=== PATIENT | male | born 1955 | race Caucasian/White ===

== ENCOUNTER 2017-01-12 15:34 | Emergency (ER) | payer OTHER ==
[~2017-01-12] VITALS: Ht 182.9 cm; Wt 100.9 kg
[~2017-01-12 15:34] MED LIST: ASPI81TA85 PO; BENA25TA4 PO; CLOTR1CR TOP; DICL13PA TD; EFFE150C PO; EFFE75CA75 PO; ENBR50IN2 SC; HYDR25TAB PO; LAMI25TA PO; LIPI10TA PO; MELO15TA4 PO; METF500T13 PO; MOBI15TA PO; MOBI4TAB PO; NEUR300C PO; PRAZ2CAP PO; PRED1TABL PO; SIMV40TA2 PO; TRAM50TA2 PO; TRAZ50TA11 PO; ULTR50TA8 PO; VENL100T PO; VENL75TA2 PO
[2017-01-12 15:35] VITALS: BP 157/95
[2017-01-12] MEDS ORDERED: TRAM50TA2 PO (17:35)
== END 2017-01-12 18:14 | disposition home or self-care (01) ==
LOC: M ED 15:34
DX: Z76.0 Encounter for issue of repeat prescription (principal); M45.9 Ankylosing spondylitis of unspecified sites in spine; M54.5 Low back pain; I10 Essential (primary) hypertension; F43.10 Post-traumatic stress disorder, unspecified; F41.9 Anxiety disorder, unspecified; F33.9 Major depressive disorder, recurrent, unspecified; F17.210 Nicotine dependence, cigarettes, uncomplicated; Z79.84 Long term (current) use of oral hypoglycemic drugs; Z79.899 Other long term (current) drug therapy; Z79.82 Long term (current) use of aspirin

== ENCOUNTER 2017-03-11 13:19 | Emergency (ER) | payer OTHER ==
[~2017-03-11] VITALS: Ht 182.9 cm; Wt 100.9 kg
[2017-03-11 13:30] VITALS: BP 156/90
[2017-03-11] MEDS ORDERED: TRAM50TA2 PO (14:29)
== END 2017-03-11 14:58 | disposition home or self-care (01) ==
LOC: M ED 13:19
DX: Z76.0 Encounter for issue of repeat prescription (principal); E11.9 Type 2 diabetes mellitus without complications; I10 Essential (primary) hypertension; F17.210 Nicotine dependence, cigarettes, uncomplicated; Z79.899 Other long term (current) drug therapy; Z79.82 Long term (current) use of aspirin; Z79.84 Long term (current) use of oral hypoglycemic drugs

== ENCOUNTER 2017-10-08 03:10 | Emergency (ER) | payer OTHER ==
[2017-10-08] MEDS ORDERED: ISOVUE-370 76% 100ML VIAL (Q9967) As Ordered (05:47)
== END 2017-10-08 06:05 | disposition left against medical advice (07) ==
LOC: M ED 03:10
DX: Z53.29 Procedure and treatment not carried out because of patient's decision for other reasons (principal)

== ENCOUNTER → 2018-06-24 | Outpatient (REF) | payer OTHER ==
[~2018-06-24] MED LIST changes: +CLOT1CRE27 TOP; -CLOTR1CR TOP; -EFFE150C PO; +EFFE150C2 PO; +EFFE75CA2 PO; -EFFE75CA75 PO; +HYDR-2541 PO; -HYDR25TAB PO; +LISI-542 PO; +MELO15TA28 PO; -MELO15TA4 PO; +TRAZ-160 PO; -TRAZ50TA11 PO
== END ==
LOC: M SFHCPLAZ 15:45
PROVIDERS: ATTEND Internal Medicine Rheumatology
DX: M45.9 Ankylosing spondylitis of unspecified sites in spine (principal)

== ENCOUNTER → 2018-12-02 | Outpatient (REF) | payer OTHER ==
[~2018-12-02] MED LIST changes: -ENBR50IN2 SC; +ETAN50SY SC; -TRAZ-160 PO; +TRAZ-252 PO
[2018-12-02 14:00] LABS: BASO # 0.1 10^3/uL (0.0-0.2); BASO % 0.9 % (0.0-1.0); EOS # 0.6 10^3/uL (0.0-0.5); EOS % 4.9 % (0.0-3.0); HEMATOCRIT 46.8 % (42.0-52.0); HEMOGLOBIN 15.7 g/dl (13.5-17.5); LYMPH # 3.3 10^3/uL (1.5-5.0); LYMPH % 29.3 % (24.0-44.0); MEAN CORPUSCULAR HEMOGLOBIN 28.7 pg (27.0-33.0); MEAN CORPUSCULAR HGB CONC 33.5 g/dl (32.0-36.5); MEAN CORPUSCULAR VOLUME 85.6 fl (80.0-96.0); MONO # 1.1 10^3/uL (0.0-0.8); MONO % 9.6 % (0.0-5.0); NEUTROPHILS # 6.2 10^3/uL (1.5-8.5); NEUTROPHILS % 54.9 % (36.0-66.0); PLATELET COUNT, AUTOMATED 306 10^3/uL (150-450); RED BLOOD COUNT 5.47 10^6/uL (4.30-6.10); WHITE BLOOD COUNT 11.2 10^3/uL (4.0-10.0)
[2018-12-02 15:04] LABS: ALBUMIN 3.8 GM/DL (3.2-5.2); ALT/SGPT 26 U/L (12-78); BILIRUBIN,TOTAL 0.3 MG/DL (0.2-1.0); BLOOD UREA NITROGEN 14 MG/DL (7-18); CALCIUM LEVEL 9.1 MG/DL (8.8-10.2); CARBON DIOXIDE LEVEL 23 MEQ/L (21-32); CHLORIDE LEVEL 108 MEQ/L (98-107); CHOLESTEROL LEVEL 181 MG/DL (<200); CHOLESTEROL RISK RATIO 4.414 (<5); CREATININE FOR GFR 0.92 MG/DL (0.70-1.30); FREE T4 1.21 NG/DL (0.76-1.46); GLOMERULAR FILTRATION RATE > 60.0 (>49); GLUCOSE, FASTING 120 MG/DL (70-100); HDL CHOLESTEROL 41 MG/DL (>40); LDL CHOLESTEROL 102 MG/DL (<100); NON-HDL-C 140 MG/DL; POTASSIUM SERUM 4.3 MEQ/L (3.5-5.1); SODIUM LEVEL 142 MEQ/L (136-145); TOTAL PROTEIN 7.6 GM/DL (6.4-8.2); TRIGLYCERIDES LEVEL 192 MG/DL (<150)
[2018-12-02 15:10] LABS: HEMOGLOBIN A1c 7.5 %
[2018-12-04 00:06] LABS: Lyme Disease IgG/IgM Antibodie <0.91 ISR (0.00-0.90); Lyme Disease IgM Ab Quantitati <0.80 index (0.00-0.79)
== END ==
LOC: M LAB REF 12:19
PROVIDERS: ATTEND Family Medicine
DX: Z12.5 Encounter for screening for malignant neoplasm of prostate (principal); Z13.228 Encounter for screening for other metabolic disorders

== ENCOUNTER → 2019-01-15 | Outpatient (CLI) | payer OTHER ==
--- NOTE | 2019-01-15 19:29 | REP ---
Clinical: Dorsalis air. Technique: AP, lateral, swimmers views of the thoracic spine. Findings: Smooth thin bridging enthesopathy is appreciated. No acute fracture / compression injury or subluxation. Minimal scattered endplate sclerosis with disc space narrowing. Impression: Mild degenerative changes. Electronically Signed by Benjamin Valle MD 01/15/2019 07:20 P
== END ==
LOC: M WUC 18:22
PROVIDERS: ATTEND Nurse Practitioner Family
DX: M51.34 Other intervertebral disc degeneration, thoracic region (principal); M54.9 Dorsalgia, unspecified

== ENCOUNTER 2019-04-12 11:47 | Emergency (ER) | payer OTHER ==
[~2019-04-12] VITALS: Ht 182.9 cm; Wt 99.8 kg
[~2019-04-12 11:47] MED LIST changes: -SIMV40TA2 PO; +SIMV40TA20 PO
[2019-04-12] MEDS ORDERED: ARIP1TAB4 OR (12:30)
[2019-04-12] MEDS ORDERED: PRAZ2CAP OR (12:30)
[2019-04-12] MEDS ORDERED: TRAM50TA2 PO (13:21)
[2019-04-12 13:24] VITALS: BP 149/92
== END 2019-04-12 13:28 | disposition home or self-care (01) ==
LOC: M ED 11:47
DX: Z76.0 Encounter for issue of repeat prescription (principal); M45.9 Ankylosing spondylitis of unspecified sites in spine; I10 Essential (primary) hypertension; E11.9 Type 2 diabetes mellitus without complications; F33.9 Major depressive disorder, recurrent, unspecified; F41.9 Anxiety disorder, unspecified; F43.10 Post-traumatic stress disorder, unspecified; Z79.899 Other long term (current) drug therapy; F17.210 Nicotine dependence, cigarettes, uncomplicated

== ENCOUNTER 2019-05-21 11:02 | Emergency (ER) | payer OTHER ==
[~2019-05-21] VITALS: Ht 182.9 cm; Wt 97.7 kg
[~2019-05-21 11:02] MED LIST changes: +ARIP1TAB4 OR; +PRAZ2CAP OR
[2019-05-21 11:03] VITALS: BP 148/79
[2019-05-21] MEDS ORDERED: LISI-538 PO (11:11)
[2019-05-21] MEDS ORDERED: ULTR50TA8 PO (11:41)
== END 2019-05-21 11:49 | disposition home or self-care (01) ==
LOC: M ED 11:02
DX: Z76.0 Encounter for issue of repeat prescription (principal); M45.9 Ankylosing spondylitis of unspecified sites in spine; Z79.899 Other long term (current) drug therapy; F17.210 Nicotine dependence, cigarettes, uncomplicated

== ENCOUNTER 2019-06-10 07:49 | Emergency (ER) | payer OTHER ==
[~2019-06-10] VITALS: Ht 182.9 cm; Wt 97.7 kg
[~2019-06-10 07:49] MED LIST changes: +LISI-538 PO
[2019-06-10] MEDS ORDERED: TRAM50TA2 PO (08:26)
[2019-06-10 08:34] VITALS: BP 167/89
== END 2019-06-10 08:37 | disposition home or self-care (01) ==
LOC: M ED 07:49
DX: Z76.0 Encounter for issue of repeat prescription (principal); I10 Essential (primary) hypertension; E78.5 Hyperlipidemia, unspecified; Z79.899 Other long term (current) drug therapy; F17.210 Nicotine dependence, cigarettes, uncomplicated

== ENCOUNTER → 2019-07-09 | Outpatient (REF) | payer OTHER ==
[2019-07-09 16:49] LABS: ALBUMIN 3.8 GM/DL (3.2-5.2); ALT/SGPT 26 U/L (12-78); BILIRUBIN,TOTAL 0.2 MG/DL (0.2-1.0); BLOOD UREA NITROGEN 13 MG/DL (7-18); CALCIUM LEVEL 9.2 MG/DL (8.8-10.2); CARBON DIOXIDE LEVEL 28 MEQ/L (21-32); CHLORIDE LEVEL 106 MEQ/L (98-107); CREATININE FOR GFR 0.95 MG/DL (0.70-1.30); GLOMERULAR FILTRATION RATE > 60.0 (>49); GLUCOSE, FASTING 236 MG/DL (70-100); POTASSIUM SERUM 4.5 MEQ/L (3.5-5.1); SODIUM LEVEL 136 MEQ/L (136-145); TOTAL PROTEIN 7.4 GM/DL (6.4-8.2)
== END ==
LOC: M LAB REF 16:15
PROVIDERS: ATTEND Physician Assistant
DX: M79.2 Neuralgia and neuritis, unspecified (principal); M45.9 Ankylosing spondylitis of unspecified sites in spine; I10 Essential (primary) hypertension; Z79.891 Long term (current) use of opiate analgesic

== ENCOUNTER 2019-07-26 19:04 | Emergency (ER) | payer OTHER ==
[~2019-07-26] VITALS: Ht 182.9 cm; Wt 100.1 kg
[2019-07-26] MEDS ORDERED: FLUO20CA22 (19:13)
[2019-07-26] MEDS ORDERED: MELO15TA28 (19:13)
[2019-07-26] MEDS ORDERED: ARIP1TAB4 (19:13)
[2019-07-26] MEDS ORDERED: TRAM50TA2 PO (19:23)
--- NOTE | 2019-07-26 19:33 | REP ---
Clinical: Acute chest pain . Comparison: 10/07/2013 . Findings: The mediastinum and cardiac silhouette are stable and within normal limits for portable technique. The lung ibrahim are clear without acute consolidation, effusion, or pneumothorax. Skeletal structures are intact. Impression: No acute cardiopulmonary process appreciated. Electronically Signed by Benjamin Valle MD 07/26/2019 07:25 P
[2019-07-26 19:36] LABS: HEMOGLOBIN 13.2 g/dl (13.5-17.5); MEAN CORPUSCULAR HEMOGLOBIN 29.3 pg (27.0-33.0); MEAN CORPUSCULAR HGB CONC 33.8 g/dl (32.0-36.5); MEAN CORPUSCULAR VOLUME 86.5 fl (80.0-96.0); PLATELET COUNT, AUTOMATED 268 10^3/uL (150-450); RED BLOOD COUNT 4.51 10^6/uL (4.30-6.10); WHITE BLOOD COUNT 14.5 10^3/uL (4.0-10.0)
[2019-07-26] MEDS ORDERED: ASPIRIN 81 MG CHEW TABLET PO ONE (19:45)
--- NOTE | 2019-07-26 19:47 | ECGEPIP ---
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
[2019-07-26 19:48] LABS: ATYPICAL LYMPH 2 % (0-5); BASOPHILS 1 % (0-1); EOSINOPHILS 5 % (0-3); LYMPHOCYTES 32 % (16-44); MONOCYTES 7 % (0-5); NEUTROPHILS 53 % (28-66)
[2019-07-26 19:49] LABS: PLATELET ESTIMATE NORMAL (NORMAL)
[2019-07-26] MEDS: NITROGLYCERIN 0.4 MG SUBL TABLET SL PRN ×3 (20:06→20:18)
[2019-07-26 20:10] LABS: BLOOD UREA NITROGEN 13 MG/DL (7-18); CALCIUM LEVEL 8.9 MG/DL (8.8-10.2); CARBON DIOXIDE LEVEL 27 MEQ/L (21-32); CHLORIDE LEVEL 104 MEQ/L (98-107); CK-MB VALUE MASS 20.2 NG/ML (<3.6); CPK CREATINE PHOSPHOKINASE 301 U/L (39-308); CREATININE FOR GFR 0.97 MG/DL (0.70-1.30); GLOMERULAR FILTRATION RATE > 60.0 (>49); GLUCOSE, FASTING 101 MG/DL (70-100); MB/CK RELATIVE INDEX 6.71 (< OR =4); POTASSIUM SERUM 4.5 MEQ/L (3.5-5.1); SODIUM LEVEL 134 MEQ/L (136-145); TROPONIN I 2.14 NG/ML (< 0.10)
[2019-07-26 20:18] VITALS: BP 115/55
[2019-07-26 20:34] LABS: INR 0.99; PROTHROMBIN TIME 12.8 SECONDS (11.8-14.0)
[2019-07-26 20:35] LABS: PARTIAL THROMBOPLASTIN TIME 30.4 SECONDS (25.0-38.4)
[2019-07-26] MEDS ORDERED: ISOVUE-370 76% 100ML VIAL As Ordered ONE (20:38)
--- NOTE | 2019-07-26 21:13 | REPVR ---
PROCEDURE INFORMATION: Exam: CT Angiography Chest With Contrast Exam date and time: 07/26/2019 8:48 PM Age: 64 years old Clinical indication: Chest pain; Additional info: Palpitations, pain rad into jaw TECHNIQUE: Imaging protocol: Computed tomographic angiography of the chest with intravenous contrast. 3D rendering: MIP and/or 3D reconstructed images were created by the technologist. Radiation optimization: All CT scans at this facility use at least one of these dose optimization techniques: automated exposure control; mA and/or kV adjustment per patient size (includes targeted exams where dose is matched to clinical indication); or iterative reconstruction. Contrast material: ISO 370; Contrast volume: 75 ml; Contrast route: IV; COMPARISON: CR PORTABLE CHEST X-RAY 07/26/2019 7:16 PM FINDINGS: Pulmonary arteries: The main pulmonary artery measures 29 mm. No pulmonary embolism is identified. Aorta: The ascending thoracic aorta measures 35 mm. Lungs: Calcified granuloma in the left lower lobe and left upper lobe. Pleural space: Unremarkable. No pneumothorax. No pleural effusion. Heart: Unremarkable. No cardiomegaly. No pericardial effusion. Lymph nodes: Small mediastinal nodes which are upper normal. Gallbladder and bile ducts: Status post cholecystectomy. Adrenals: Left adrenal nodule measuring 12 x 12 x 15 mm with a Hounsfield measurement of -9. There appear to be some smaller left adrenal nodules as well measuring 10 mm with a Hounsfield measurement of -7 and 11 mm nodule with a Hounsfield measurement of -3. Bones/joints: Ankylosis about the thoracolumbar region and segmental ankylosis in the upper thoracic spine. Soft tissues: Unremarkable. IMPRESSION: 1. Old granulomatous disease. 2. There are several left adrenal nodules measuring up to 12 x 12 x 15 mm. No follow-up is necessary. 3. Status post cholecystectomy. 4. Otherwise negative CTA chest. No pulmonary embolism is identified. Electronically signed by: Camron Tom On 07/26/2019 21:13:32 PM
[2019-07-26] MEDS ORDERED: HEPARIN DRIP 25,000 UNITS in IV 1 EA IV SCH (21:15)
[2019-07-26] MEDS ORDERED: HEPARIN SOD (PORCINE) 5000UNITS/ML VIAL (J1644 PER 1000UNITS) IV ONE (21:15)
[2019-07-26 22:49] VITALS: BP 143/79
== END 2019-07-26 22:52 | disposition short-term general hospital (02) ==
LOC: M ED 19:04
DX: I21.4 Non-ST elevation (NSTEMI) myocardial infarction (principal); R55 Syncope and collapse; I10 Essential (primary) hypertension; K21.9 Gastro-esophageal reflux disease without esophagitis; F99 Mental disorder, not otherwise specified; F17.210 Nicotine dependence, cigarettes, uncomplicated; Z88.8 Allergy status to other drugs, medicaments and biological substances; Z79.899 Other long term (current) drug therapy
CPT/HCPCS: 71045; 71275; 80048; 82550; 82553; 83735; 84439; 84443; 85025; 85610; 85730; 93005; 93041; 94760; 96374; 99285; J1644; Q9967

== ENCOUNTER → 2019-11-05 | Outpatient (REF) | payer OTHER, MEDICAID ==
[~2019-11-05] MED LIST changes: +ARIP1TAB4; -ASPI81TA85 PO; +ASPI81TA86 PO; +FLUO20CA22; +MELO15TA28
[2019-12-20 07:07] LABS: ALBUMIN 4.1 GM/DL (3.2-5.2); ALT/SGPT 20 U/L (12-78); BILIRUBIN,TOTAL 0.3 MG/DL (0.2-1.0); BLOOD UREA NITROGEN 13 MG/DL (7-18); CALCIUM LEVEL 9.3 MG/DL (8.8-10.2); CARBON DIOXIDE LEVEL 26 MEQ/L (21-32); CHLORIDE LEVEL 106 MEQ/L (98-107); CHOLESTEROL LEVEL 234 MG/DL (<200); CHOLESTEROL RISK RATIO 6.685 (<5); CREATININE FOR GFR 1.07 MG/DL (0.70-1.30); FREE T4 1.29 NG/DL (0.76-1.46); GLOMERULAR FILTRATION RATE > 60.0 (>49); GLUCOSE, FASTING 94 MG/DL (70-100); HDL CHOLESTEROL 35 MG/DL (>40); LDL CHOLESTEROL 147 MG/DL (<100); NON-HDL-C 199 MG/DL; POTASSIUM SERUM 4.6 MEQ/L (3.5-5.1); SODIUM LEVEL 137 MEQ/L (136-145); TOTAL PROTEIN 7.9 GM/DL (6.4-8.2); TRIGLYCERIDES LEVEL 261 MG/DL (<150)
[2019-12-20 07:08] LABS: HEMOGLOBIN A1c 6.6 %
== END ==
LOC: M LAB REF 17:21
PROVIDERS: ATTEND Physician Assistant
DX: R73.03 Prediabetes (principal); Z79.891 Long term (current) use of opiate analgesic; E66.09 Other obesity due to excess calories

== ENCOUNTER 2020-03-23 21:01 | Emergency (ER) | payer MEDICAID, OTHER ==
[~2020-03-23] VITALS: Ht 182.9 cm; Wt 94.3 kg
[2020-03-23] MEDS ORDERED: PRAZ2CAP PO (21:29)
[2020-03-23] MEDS ORDERED: ASPI-117 PO (21:29)
[2020-03-23] MEDS ORDERED: ATOR40TA75 PO (21:29)
[2020-03-23] MEDS ORDERED: ASPIRIN 81 MG CHEW TABLET PO ONE (21:30)
[2020-03-23 21:54] LABS: BASO # 0.1 10^3/uL (0.0-0.2); BASO % 0.6 % (0.0-1.0); EOS # 0.5 10^3/uL (0.0-0.5); EOS % 2.8 % (0.0-3.0); HEMATOCRIT 46.3 % (42.0-52.0); HEMOGLOBIN 14.9 g/dl (13.5-17.5); LYMPH # 4.2 10^3/uL (1.5-5.0); LYMPH % 24.3 % (24.0-44.0); MEAN CORPUSCULAR HEMOGLOBIN 28.3 pg (27.0-33.0); MEAN CORPUSCULAR HGB CONC 32.2 g/dl (32.0-36.5); MEAN CORPUSCULAR VOLUME 87.9 fl (80.0-96.0); MONO # 1.5 10^3/uL (0.0-0.8); MONO % 8.9 % (0.0-5.0); NEUTROPHILS # 10.9 10^3/uL (1.5-8.5); NEUTROPHILS % 62.9 % (36.0-66.0); PLATELET COUNT, AUTOMATED 287 10^3/uL (150-450); RED BLOOD COUNT 5.27 10^6/uL (4.30-6.10); WHITE BLOOD COUNT 17.3 10^3/uL (4.0-10.0)
--- NOTE | 2020-03-23 21:58 | REPVR ---
PROCEDURE INFORMATION: Exam: XR Chest, 1 View Exam date and time: 03/23/2020 9:50 PM Age: 64 years old Clinical indication: Chest pain; Type not specified TECHNIQUE: Imaging protocol: XR of the chest Views: 1 view. COMPARISON: CR PORTABLE CHEST X-RAY 07/26/2019 7:16 PM FINDINGS: Lungs: Calcified granulomas left lung. Lungs otherwise clear. Pleural space: Unremarkable. No pleural effusion. No pneumothorax. Heart/Mediastinum: Unremarkable. No cardiomegaly. Bones/joints: Unremarkable. IMPRESSION: No acute findings. Electronically signed by: Delvis Pierson On 03/23/2020 21:58:34 PM
[2020-03-23 22:10] LABS: INR 0.94; PROTHROMBIN TIME 12.8 SECONDS (12.5-14.3)
[2020-03-23 22:11] LABS: PARTIAL THROMBOPLASTIN TIME 26.4 SECONDS (24.2-38.5)
[2020-03-23 22:26] LABS: BLOOD UREA NITROGEN 14 MG/DL (7-18); CALCIUM LEVEL 8.9 MG/DL (8.8-10.2); CARBON DIOXIDE LEVEL 27 MEQ/L (21-32); CHLORIDE LEVEL 105 MEQ/L (98-107); CREATININE FOR GFR 1.15 MG/DL (0.70-1.30); GLOMERULAR FILTRATION RATE > 60.0 (>49); GLUCOSE, FASTING 87 MG/DL (70-100); NT-PRO BNP 17 PG/ML (<125); SODIUM LEVEL 139 MEQ/L (136-145)
[2020-03-23] MEDS: GASTROGRAFIN SOLUTION 30ML PO SCH ×2 (22:30→23:00)
[2020-03-23] MEDS ORDERED: ISOVUE-370 76% 100ML VIAL As Ordered ONE (23:13)
--- NOTE | 2020-03-24 00:26 | REPVR ---
PROCEDURE INFORMATION: Exam: CT Angiography Chest With Contrast Exam date and time: 03/23/2020 10:47 PM Age: 64 years old Clinical indication: Chest pain and back pain. R/O dissection. TECHNIQUE: Imaging protocol: Computed tomographic angiography of the chest with intravenous contrast. 3D rendering (Not supervised by radiologist): MIP and/or 3D reconstructed images were created by the technologist. Radiation optimization: All CT scans at this facility use at least one of these dose optimization techniques: automated exposure control; mA and/or kV adjustment per patient size (includes targeted exams where dose is matched to clinical indication); or iterative reconstruction. Contrast material: ISO; Contrast volume: 100 ml; Contrast route: INTRAVENOUS (IV); COMPARISON: CT ANGIO CHEST 07/26/2019 8:40 PM FINDINGS: Pulmonary arteries: No pulmonary embolism. Aorta: The thoracic aorta is intact and patent. There is no thoracic aortic aneurysm, pseudoaneurysm, penetrating atherosclerotic ulcer, intramural hematoma, or dissection. There are mild atherosclerotic calcifications. Great vessels off aortic arch: The brachiocephalic artery, imaged proximal portions of the common carotid arteries, imaged proximal portions of the vertebral arteries, and subclavian arteries are intact. No stenosis or occlusion of these vessels is noted. Thyroid: Unremarkable. Tracheobronchial tree: There are mild secretions in the trachea and right mainstem bronchus. Lungs: There is a 5 mm calcified granuloma in the left upper lobe and a 5 mm calcified granuloma in the left lower lobe that are unchanged compared to the prior CTA chest on 07/26/2019. There are mild centrilobular emphysematous changes, predominantly in the upper lobes, without significant change compared to the prior CTA chest on 07/26/2019. No lung consolidation or ground-glass opacification is noted. Pleural space: Normal. No pneumothorax or pleural effusion. Heart: No cardiomegaly or pericardial effusion. There are coronary artery calcifications. Mediastinal space: No mediastinal mass, fluid collection, or pneumomediastinum. Lymph nodes: There are 9 mm right hilar, 9 mm left hilar, 11 mm precarinal, and 12 mm aortopulmonary window lymph nodes, which are stable compared to the prior CTA chest on 07/26/2019. Diaphragm: Intact. Bones/joints: There is a healing or healed nondisplaced fracture of the right anterior 7th rib, which is new compared to the prior CTA chest on 07/26/2019. There are old healed fracture deformities of the right anterior 3rd and 4th ribs and right scapula. There are chronic mild superior endplate compression fractures of T4, T6, T7, T8, T9, T10, and T11, which are stable compared to the prior CTA chest on 07/26/2019. There are thin bridging vertical syndesmophytes, ankylosis of the facet joints, and ossification of the supraspinous ligament at several levels in the thoracic spine. The bones have a demineralized appearance. No suspicious osteolytic or osteoblastic lesion is noted. Soft tissues: Unremarkable. No soft tissue fluid collection. Other findings: For details regarding the abdominal and pelvic findings, refer to the CTA abdomen and pelvis report on 03/23/2020. IMPRESSION: 1. No thoracic aortic aneurysm, pseudoaneurysm, intramural hematoma, penetrating atherosclerotic ulcer, or dissection. 2. No pulmonary embolism. 3. Healing or healed nondisplaced fracture of the right anterior 7th rib, which is new compared to the prior CTA chest on 07/26/2019. 4. Chronic mild superior endplate compression fractures of T4, T6, T7, T8, T9, T10, and T11, which are stable compared to the prior CTA chest on 07/26/2019. 5. Thin bridging vertical syndesmophytes, ankylosis of the facet joints, and ossification of the supraspinous ligament at several levels in the thoracic spine, which may indicate ankylosing spondylitis. 6. Mild centrilobular emphysematous changes, predominantly in the upper lobes, without significant change compared to the prior CTA chest on 07/26/2019. 7. Precarinal and aortopulmonary window lymphadenopathy, which is stable compared to the prior CTA chest on 07/26/2019. Electronically signed by: Bill Renee On 03/24/2020 00:26:18 AM
--- NOTE | 2020-03-24 00:41 | REPVR ---
PROCEDURE INFORMATION: Exam: CT Abdomen And Pelvis Without Contrast Exam date and time: 03/23/2020 10:47 PM Age: 64 years old Clinical indication: Chest pain and back pain. R/O dissection. TECHNIQUE: Imaging protocol: Computed tomography of the abdomen and pelvis without contrast. Radiation optimization: All CT scans at this facility use at least one of these dose optimization techniques: automated exposure control; mA and/or kV adjustment per patient size (includes targeted exams where dose is matched to clinical indication); or iterative reconstruction. COMPARISON: 1. CT ANGIO CHEST 07/26/2019 8:40:[address] ANGIO ABD/PEL 03/23/2020 11:17:25 PM FINDINGS: Lungs: For details regarding the lungs, refer to the CT chest report on 03/23/2020. Heart: For details regarding the heart, refer to the CT chest report on 03/23/2020. Liver: There is a calcified granuloma in the liver. No liver mass is identified. The contour of the liver is smooth. No hepatomegaly. Gallbladder and bile ducts: There has been a cholecystectomy. There is no fluid collection in the gallbladder fossa. No dilation of the bile ducts is noted. No calcified stones are seen in the common bile duct. Pancreas: Unremarkable. No dilation of the main pancreatic duct is noted. There is no inflammatory fat stranding around the pancreas to suggest acute pancreatitis. Spleen: There is a calcified granuloma in the spleen. No splenomegaly. Adrenal glands: There are left adrenal nodules measuring up to 15 mm, all measuring less than 0 Hounsfield units, which are stable compared to the prior CTA chest on 07/26/2019 and represent benign adrenal adenomas, for which further evaluation and follow-up is not necessary. The right adrenal gland is normal. Kidneys and ureters: There is a 10 mm hyperdense cyst and other benign-appearing cysts in both kidneys measuring up to 18 mm, for which further evaluation and follow-up is not necessary. No stones are noted in the kidneys or ureters. There is no hydronephrosis or hydroureter. Stomach and bowel: The stomach and small bowel are unremarkable. There is severe sigmoid diverticulosis without evidence for diverticulitis. There is no evidence for a bowel obstruction, colitis, pneumatosis intestinalis, intussusception, volvulus, or perforated viscus. Appendix: Normal. There is no evidence for appendicitis. Intraperitoneal space: No free air. No ascites. No asbcess. Retroperitoneal space: No fluid collection. No mass. Vasculature: The abdominal aorta is normal in caliber. There are mild to moderate atherosclerotic calcifications. Lymph nodes: No enlarged lymph nodes. Urinary bladder: The partially distended urinary bladder is unremarkable. No stones or masses are seen in the bladder. Reproductive: There are calcifications in the prostate gland. The seminal vesicles are unremarkable. Bones/joints: There is a healed or healing fracture of the right anterior 7th rib. There is a chronic mild superior endplate compression fracture of L5 and a chronic left L5 pars defect. The right L5 pars interarticularis is intact. There is a grade 1 anterolisthesis of L5 on S1. There are thin bridging vertical syndesmophytes in the thoracic spine and upper lumbar spine with ankylosis of the facet joints and ossification of the supraspinous ligament in the thoracic spine. There is ankylosis of the sacroiliac joints. Degenerative changes are present in the lumbar spine. The bones have a demineralized appearance. There is mild osteoarthritis of both hip joints. There are mild degenerative changes of the pubic symphysis. Soft tissues: There is a small fat containing umbilical hernia. IMPRESSION: 1. No acute findings in the abdomen or pelvis. 2. Severe sigmoid diverticulosis without evidence for diverticulitis. 3. Thin bridging vertical syndesmophytes in the thoracic spine and upper lumbar spine with ankylosis of the facet joints and ossification of the supraspinous ligament in the thoracic spine and ankylosis of the sacroiliac joints, which are findings that may indicate ankylosing spondylitis. 4. Small fat containing umbilical hernia. COMMENTS: 1. Consistent with the [employer]'s Incidental Findings Committee white paper (J Am Katey Radiol 2017): Any incidental adrenal lesion less than or equal to 1 cm is likely benign. No follow-up imaging is recommended for these lesions per consensus recommendations based on imaging criteria. Further lab evaluation could be pursued if warranted based on clinical findings. 2. Consistent with the [employer]'s Incidental Findings Committee white paper (J Am Katey Radiol 2018): Any incidental renal lesion less than 1 cm or classified as too small to characterize, or any incidental cystic renal lesion characterized as simple-appearing, is likely benign. No follow-up imaging is recommended for these lesions per consensus recommendations based on imaging criteria. Electronically signed by: Bill Renee On 03/24/2020 00:41:17 AM
--- NOTE | 2020-03-24 00:41 | REPVR ---
PROCEDURE INFORMATION: Exam: CT Chest Without Contrast; Diagnostic Exam date and time: 03/23/2020 10:47 PM Age: 64 years old Clinical indication: Chest pain and back pain. R/O dissection. TECHNIQUE: Imaging protocol: Diagnostic computed tomography of the chest without contrast. Radiation optimization: All CT scans at this facility use at least one of these dose optimization techniques: automated exposure control; mA and/or kV adjustment per patient size (includes targeted exams where dose is matched to clinical indication); or iterative reconstruction. COMPARISON: 1. CT ANGIO CHEST 07/26/2019 8:[address] ANGIO CHEST 03/23/2020 11:17:[address] ANGIO ABD/PEL 03/23/2020 11:17:25 PM FINDINGS: Tracheobronchial tree: There are mild secretions in the trachea and right mainstem bronchus. Lungs: There is a 5 mm calcified granuloma in the left upper lobe and a 5 mm calcified granuloma in the left lower lobe that are unchanged compared to the prior CTA chest on 07/26/2019. There are mild centrilobular emphysematous changes, predominantly in the upper lobes, without significant change compared to the prior CTA chest on 07/26/2019. No lung consolidation or ground-glass opacification is noted. Pleural space: Normal. No pneumothorax or pleural effusion. Heart: No cardiomegaly or pericardial effusion. There are coronary artery calcifications. Mediastinal space: No mediastinal mass, fluid collection, or pneumomediastinum. Aorta: No thoracic aortic aneurysm or intramural hematoma is noted. There are mild atherosclerotic calcifications. Lymph nodes: There are 9 mm right hilar, 9 mm left hilar, 11 mm precarinal, and 12 mm aortopulmonary window lymph nodes, which are stable compared to the prior CTA chest on 07/26/2019. Diaphragm: Intact. Liver: There is a calcified granuloma in the liver. No liver mass is identified. The contour of the liver is smooth. No hepatomegaly. Gallbladder and bile ducts: There has been a cholecystectomy. There is no fluid collection in the gallbladder fossa. No dilation of the bile ducts is noted. No calcified stones are seen in the common bile duct. Spleen: There is a calcified granuloma in the spleen. No splenomegaly. Adrenals: There are left adrenal nodules measuring up to 15 mm, all measuring less than 0 Hounsfield units, which are stable compared to the prior CTA chest on 07/26/2019 and represent benign adrenal adenomas, for which further evaluation and follow-up is not necessary. The right adrenal gland is normal. Kidneys and ureters: There is a 10 mm hyperdense cyst and other benign-appearing cysts in both kidneys measuring up to 18 mm, for which further evaluation and follow-up is not necessary. The kidneys were not fully imaged. Bones/joints: There is a healing or healed nondisplaced fracture of the right anterior 7th rib, which is new compared to the prior CTA chest on 07/26/2019. There are old healed fracture deformities of the right anterior 3rd and 4th ribs and right scapula. There are chronic mild superior endplate compression fractures of T4, T6, T7, T8, T9, T10, and T11, which are stable compared to the prior CTA chest on 07/26/2019. There are thin bridging vertical syndesmophytes, ankylosis of the facet joints, and ossification of the supraspinous ligament at several levels in the thoracic spine. The bones have a demineralized appearance. No suspicious osteolytic or osteoblastic lesion is noted. Soft tissues: Unremarkable. No soft tissue fluid collection. IMPRESSION: 1. Healing or healed nondisplaced fracture of the right anterior 7th rib, which is new compared to the prior CTA chest on 07/26/2019. 2. Chronic mild superior endplate compression fractures of T4, T6, T7, T8, T9, T10, and T11, which are stable compared to the prior CTA chest on 07/26/2019. 3. Thin bridging vertical syndesmophytes, ankylosis of the facet joints, and ossification of the supraspinous ligament at several levels in the thoracic spine, which may indicate ankylosing spondylitis. 4. Mild centrilobular emphysematous changes, predominantly in the upper lobes, without significant change compared to the prior CTA chest on 07/26/2019. 5. Precarinal and aortopulmonary window lymphadenopathy, which is stable compared to the prior CTA chest on 07/26/2019. COMMENTS: 1. Consistent with the [employer]'s Incidental Findings Committee white paper (J Am Katey Radiol 2017): Any incidental adrenal lesion less than or equal to 1 cm is likely benign. No follow-up imaging is recommended for these lesions per consensus recommendations based on imaging criteria. Further lab evaluation could be pursued if warranted based on clinical findings. 2. Consistent with the [employer]'s Incidental Findings Committee white paper (J Am Katey Radiol 2018): Any incidental renal lesion less than 1 cm or classified as too small to characterize, or any incidental cystic renal lesion characterized as simple-appearing, is likely benign. No follow-up imaging is recommended for these lesions per consensus recommendations based on imaging criteria. Electronically signed by: Bill Renee On 03/24/2020 00:41:39 AM
--- NOTE | 2020-03-24 00:42 | REPVR ---
PROCEDURE INFORMATION: Exam: CT Angiography Abdomen and Pelvis With Contrast Exam date and time: 03/23/2020 10:47 PM Age: 64 years old Clinical indication: Chest pain and back pain. R/O dissection. TECHNIQUE: Imaging protocol: Computed tomographic angiography of the abdomen and pelvis with intravenous contrast material. 3D rendering (Not supervised by radiologist): MIP and/or 3D reconstructed images were created by the technologist. Radiation optimization: All CT scans at this facility use at least one of these dose optimization techniques: automated exposure control; mA and/or kV adjustment per patient size (includes targeted exams where dose is matched to clinical indication); or iterative reconstruction. Contrast material: ISO; Contrast volume: 100 ml; Contrast route: INTRAVENOUS (IV); COMPARISON: CT ANGIO CHEST 07/26/2019 8:40:29 PM FINDINGS: Lungs: For details regarding the lungs, refer to the CTA chest report on 03/23/2020. Heart: For details regarding the heart, refer to the CTA chest report on 03/23/2020. Aorta: The abdominal aorta is normal in caliber. There are mild to moderate atherosclerotic calcifications. Celiac trunk and mesenteric arteries: No occlusion or significant stenosis. Renal arteries: No occlusion or significant stenosis. There are 2 main right renal arteries and a single main left renal artery. Right iliac arteries: No occlusion or significant stenosis. There are mild atherosclerotic calcifications. Right femoral/popliteal arteries: No occlusion or significant stenosis of the right common femoral artery or imaged proximal portion of the right superficial femoral artery. The right popliteal artery was not imaged. Left iliac arteries: No occlusion or significant stenosis. There are mild atherosclerotic calcifications. Left femoral/popliteal arteries: No occlusion or significant stenosis of the left common femoral artery or imaged proximal portion of the left superficial femoral artery. The left popliteal artery was not imaged. Liver: There is a calcified granuloma in the liver. No liver mass is identified. The contour of the liver is smooth. No hepatomegaly. Gallbladder and bile ducts: There has been a cholecystectomy. There is no fluid collection in the gallbladder fossa. No dilation of the bile ducts is noted. No calcified stones are seen in the common bile duct. Pancreas: Normal. No dilation of the main pancreatic duct is noted. There is no inflammatory fat stranding around the pancreas to suggest acute pancreatitis. Spleen: There is a calcified granuloma in the spleen. No splenomegaly. Adrenals: There are left adrenal nodules measuring up to 15 mm, which are stable compared to the prior CTA chest on 07/26/2019 and represent benign adrenal adenomas, for which further evaluation and follow-up is not necessary. The right adrenal gland is normal. Kidneys and ureters: There is a 10 mm hyperdense cyst and other benign-appearing cysts in both kidneys measuring up to 18 mm, for which further evaluation and follow-up is not necessary. There are no wedge-shaped areas of low attenuation in the kidneys to suggest pyelonephritis. There is no renal abscess or perinephric fluid collection. No stones are noted in the kidneys or ureters. There is no hydronephrosis or hydroureter. Stomach and bowel: The stomach and small bowel are unremarkable. There is severe sigmoid diverticulosis without evidence for diverticulitis. There is no evidence for a bowel obstruction, colitis, pneumatosis intestinalis, intussusception, volvulus, or perforated viscus. Appendix: Normal. There is no evidence for appendicitis. Intraperitoneal space: No fluid collection. No free air. Retroperitoneal space: No fluid collection. No mass. Lymph nodes: No enlarged lymph nodes. Urinary bladder: The partially distended urinary bladder is unremarkable. No stones or masses are seen in the bladder. Reproductive: There are calcifications in the prostate gland. The seminal vesicles are unremarkable. Bones/joints: There is a healed or healing fracture of the right anterior 7th rib. There is a chronic mild superior endplate compression fracture of L5 and a chronic left L5 pars defect. The right L5 pars interarticularis is intact. There is a grade 1 anterolisthesis of L5 on S1. There are thin bridging vertical syndesmophytes in the thoracic spine and upper lumbar spine with ankylosis of the facet joints and ossification of the supraspinous ligament in the thoracic spine. There is ankylosis of the sacroiliac joints. Degenerative changes are present in the lumbar spine. The bones have a demineralized appearance. There is mild osteoarthritis of both hip joints. There are mild degenerative changes of the pubic symphysis. Soft tissues: There is a small fat containing umbilical hernia. IMPRESSION: 1. No acute findings in the abdomen or pelvis. 2. No abdominal aortic intramural hematoma, aneurysm, penetrating atherosclerotic ulcer, or dissection. 3. Severe sigmoid diverticulosis without evidence for diverticulitis. 4. Thin bridging vertical syndesmophytes in the thoracic spine and upper lumbar spine with ankylosis of the facet joints and ossification of the supraspinous ligament in the thoracic spine and ankylosis of the sacroiliac joints, which are findings that may indicate ankylosing spondylitis. 5. Small fat containing umbilical hernia. Electronically signed by: Bill Renee On 03/24/2020 00:42:08 AM
--- NOTE | 2020-03-24 02:23 | ED PDOC ---
Post-Departure Follow-Up 64yo M smoker with a history of CAD s/p stent (x1), HTN, preDM, HLD and ankylosi ng spondylitis presents with chest pain. He reports that he developed severe, sharp, spasm like back pain. He then developed L parasternal chest pain and weakness in both his arms. The episode lasted approximately 2 hours. He took NTG (x1) with improvement, however his BP dropped to 88/53 to 93/54. His associated symptoms include dizziness. He denies fever, chills, increased sweating, nausea, vomiting, diarrhea, decreased PO, SOB, cough, palpitation, leg pain/swelling, abdominal pain, numbness, tingling, leg weakness, recent travel/hospitalization or other symptoms. His exam is unremarkable. He is neurovascularly intact with central pulses, afebrile, hemodynamically stable and nontoxic appearing. His symptoms are concerning for aortic dissection vs ACS vs MSK pain. Labs, imaging and EKG were obtained. He was given GLORIA JONES MD Mar 24, 2020 02:23
[2020-03-24 03:02] VITALS: BP 136/77
--- NOTE | 2020-03-24 07:41 | ECGEPIP ---
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
== END 2020-03-24 03:06 | disposition home or self-care (01) ==
LOC: M ED 21:01
DX: M79.18 Myalgia, other site (principal); I10 Essential (primary) hypertension; R73.03 Prediabetes; E78.5 Hyperlipidemia, unspecified; I25.10 Atherosclerotic heart disease of native coronary artery without angina pectoris; M45.9 Ankylosing spondylitis of unspecified sites in spine; Z95.5 Presence of coronary angioplasty implant and graft; Z79.899 Other long term (current) drug therapy; Z79.82 Long term (current) use of aspirin; F17.210 Nicotine dependence, cigarettes, uncomplicated
CPT/HCPCS: 71045; 71250; 71275; 74174; 74176; 80048; 83880; 85025; 85610; 85730; 93005; 93041; 94760; 99285; Q9967

== ENCOUNTER 2020-06-14 13:03 | Emergency (ER) | payer MEDICAID, OTHER ==
[~2020-06-14] VITALS: Ht 182.9 cm; Wt 96.1 kg
[~2020-06-14 13:03] MED LIST changes: +ASPI-117 PO; +ATOR40TA75 PO; -LISI-538 PO; -LISI-542 PO; +LISI-898 PO; +LISI20TA33 PO
[2020-06-14 13:04] VITALS: BP 165/81
[2020-06-14] MEDS ORDERED: NITR0.4S14 (13:39)
[2020-06-14] MEDS ORDERED: CLOP75TA2 (13:39)
--- NOTE | 2020-06-14 14:01 | REP ---
INDICATION: CHEST PAIN. COMPARISON: Comparison chest x-ray March 23, 2020. TECHNIQUE: Portable upright AP chest radiograph. FINDINGS: The lungs are well inflated and free of infiltrate. Pleural angles are sharp. Heart size is normal. Pulmonary vasculature is not increased. EKG monitoring electrodes are seen. There is a granulomatous calcification in the left perihilar region and another in the left base unchanged. IMPRESSION: No active disease. <Electronically signed by Juan Ramon Serrano > 06/14/20 [id number]
[2020-06-14 14:02] LABS: BASO # 0.1 10^3/uL (0.0-0.2); BASO % 0.6 % (0.0-1.0); EOS # 0.5 10^3/uL (0.0-0.5); EOS % 3.5 % (0.0-3.0); HEMATOCRIT 48.6 % (42.0-52.0); HEMOGLOBIN 16.6 g/dl (13.5-17.5); LYMPH % 28.9 % (24.0-44.0); MEAN CORPUSCULAR HEMOGLOBIN 29.5 pg (27.0-33.0); MEAN CORPUSCULAR HGB CONC 34.2 g/dl (32.0-36.5); MEAN CORPUSCULAR VOLUME 86.5 fl (80.0-96.0); MONO # 1.1 10^3/uL (0.0-0.8); MONO % 8.2 % (2.0-8.0); NEUTROPHILS % 58.3 % (36.0-66.0); PLATELET COUNT, AUTOMATED 267 10^3/uL (150-450); RED BLOOD COUNT 5.62 10^6/uL (4.30-6.10); WHITE BLOOD COUNT 13.7 10^3/uL (4.0-10.0)
[2020-06-14 15:01] LABS: ALBUMIN 4.1 GM/DL (3.2-5.2); ALT/SGPT 24 U/L (12-78); BILIRUBIN,DIRECT < 0.1 MG/DL (0.0-0.2); BILIRUBIN,TOTAL 0.4 MG/DL (0.2-1.0); BLOOD UREA NITROGEN 17 MG/DL (7-18); CALCIUM LEVEL 9.4 MG/DL (8.8-10.2); CARBON DIOXIDE LEVEL 22 MEQ/L (21-32); CHLORIDE LEVEL 107 MEQ/L (98-107); CREATININE FOR GFR 0.96 MG/DL (0.70-1.30); GLOMERULAR FILTRATION RATE > 60.0 (>49); GLUCOSE, FASTING 163 MG/DL (70-100); POTASSIUM SERUM 4.5 MEQ/L (3.5-5.1); SODIUM LEVEL 138 MEQ/L (136-145); TOTAL PROTEIN 7.9 GM/DL (6.4-8.2)
--- NOTE | 2020-06-14 17:41 | ECGEPIP ---
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
== END 2020-06-14 14:02 | disposition left against medical advice (07) ==
LOC: M ED 13:03
DX: R07.89 Other chest pain (principal); F33.9 Major depressive disorder, recurrent, unspecified; R45.851 Suicidal ideations; Z91.19 Patient's noncompliance with other medical treatment and regimen; I10 Essential (primary) hypertension; E78.5 Hyperlipidemia, unspecified; Z79.899 Other long term (current) drug therapy; Z79.82 Long term (current) use of aspirin; Z79.01 Long term (current) use of anticoagulants; Z88.8 Allergy status to other drugs, medicaments and biological substances

== ENCOUNTER 2020-06-14 15:44 | Emergency (ER) | payer OTHER ==
[~2020-06-14] VITALS: Ht 188 cm; Wt 97.7 kg
[~2020-06-14 15:44] MED LIST changes: +CLOP75TA2; +NITR0.4S14
[2020-06-14 21:23] VITALS: BP 137/87
== END 2020-06-14 21:38 | disposition home or self-care (01) ==
LOC: M ED 15:44
DX: F43.20 Adjustment disorder, unspecified (principal); I10 Essential (primary) hypertension; F33.9 Major depressive disorder, recurrent, unspecified; I25.10 Atherosclerotic heart disease of native coronary artery without angina pectoris; Z88.8 Allergy status to other drugs, medicaments and biological substances; Z79.899 Other long term (current) drug therapy; Z79.82 Long term (current) use of aspirin; Z79.01 Long term (current) use of anticoagulants

== ENCOUNTER 2020-11-16 01:02 | Emergency (ER) | payer OTHER, MEDICAID ==
[~2020-11-16] VITALS: Ht 182.9 cm; Wt 96.6 kg
[2020-11-16 01:03] VITALS: BP 146/72
== END 2020-11-16 01:35 | disposition left against medical advice (07) ==
LOC: M ED 01:02
DX: Z53.29 Procedure and treatment not carried out because of patient's decision for other reasons (principal)

== ENCOUNTER 2021-01-01 09:07 | Emergency (ER) | payer MEDICAID, OTHER ==
[~2021-01-01] VITALS: Ht 182.9 cm; Wt 93.3 kg
[2021-01-01 09:08] VITALS: BP 168/91
[2021-01-01] MEDS ORDERED: TRAM50TA2 PO (11:05)
== END 2021-01-01 11:20 | disposition home or self-care (01) ==
LOC: M ED 09:07
DX: Z76.0 Encounter for issue of repeat prescription (principal); I10 Essential (primary) hypertension; E78.5 Hyperlipidemia, unspecified; I25.2 Old myocardial infarction; K21.9 Gastro-esophageal reflux disease without esophagitis; M45.9 Ankylosing spondylitis of unspecified sites in spine; Z87.19 Personal history of other diseases of the digestive system; Z95.5 Presence of coronary angioplasty implant and graft; Z88.8 Allergy status to other drugs, medicaments and biological substances; Z79.899 Other long term (current) drug therapy; Z79.82 Long term (current) use of aspirin; Z79.01 Long term (current) use of anticoagulants

== ENCOUNTER 2022-01-16 01:04 | Emergency (ER) | payer OTHER ==
[~2022-01-16] VITALS: Ht 182.9 cm; Wt 95.5 kg
[~2022-01-16 01:04] MED LIST changes: -LISI-898 PO; +LISI5TAB11 PO
[2022-01-16] MEDS ORDERED: CRES40TA PO (01:10)
[2022-01-16] MEDS ORDERED: METF-877 PO (01:10)
[2022-01-16] MEDS ORDERED: ACET32TAB PO (01:10)
[2022-01-16 05:38] VITALS: BP 154/74
== END 2022-01-16 05:40 | disposition home or self-care (01) ==
LOC: M ED 01:04
DX: S63.501A Unspecified sprain of right wrist, initial encounter (principal); X58.XXXA Exposure to other specified factors, initial encounter; Y92.099 Unspecified place in other non-institutional residence as the place of occurrence of the external cause; E11.9 Type 2 diabetes mellitus without complications; I10 Essential (primary) hypertension; F17.200 Nicotine dependence, unspecified, uncomplicated; Z79.899 Other long term (current) drug therapy; Z88.8 Allergy status to other drugs, medicaments and biological substances

== ENCOUNTER 2023-08-09 16:41 | Emergency (ER) | payer OTHER, SELFPAY ==
[~2023-08-09] VITALS: Ht 182.9 cm; Wt 95.4 kg
[2023-08-09 16:41] VITALS: BP 179/96; TEMP 97.5; O2SAT 98
[~2023-08-09 16:41] MED LIST changes: +ACET32TAB PO; +CRES40TA PO; -EFFE150C2 PO; +EFFE150C3 PO; +METF-877 PO
== END 2023-08-09 17:32 | disposition left against medical advice (07) ==
LOC: M ED 16:41
DX: Z53.21 Procedure and treatment not carried out due to patient leaving prior to being seen by health care provider (principal)

== ENCOUNTER 2025-03-23 18:46 | Emergency (ER) | payer MEDICARE, SELFPAY ==
[~2025-03-23] VITALS: Ht 182.9 cm; Wt 91.8 kg
[~2025-03-23 18:46] MED LIST changes: +FLUO-365; -FLUO20CA22; +PRED-1142 PO; -PRED1TABL PO
[2025-03-23 20:17] VITALS: BP 165/95; TEMP 98.8; O2SAT 97
[2025-03-27] MEDS ORDERED: TRAM50TA2 PO (16:23)
== END 2025-03-23 20:22 | disposition home or self-care (01) ==
LOC: M ED 19:56
DX: S20.222A Contusion of left back wall of thorax, initial encounter (principal); Y92.9 Unspecified place or not applicable; Y93.9 Activity, unspecified; Y99.9 Unspecified external cause status; I25.119 Atherosclerotic heart disease of native coronary artery with unspecified angina pectoris; F17.210 Nicotine dependence, cigarettes, uncomplicated; Z88.8 Allergy status to other drugs, medicaments and biological substances; Z79.1 Long term (current) use of non-steroidal anti-inflammatories (NSAID)